=== PATIENT | male | born 2000 | race Caucasian/White ===

== ENCOUNTER 2018-02-01 17:21 | Emergency (ER) | payer OTHER ==
--- NOTE | 2018-02-01 17:32 | ER Report ---
History and Physical Time Seen By MD: 17:32 HPI/ROS CHIEF COMPLAINT: Suicidal ideation HISTORY OF PRESENT ILLNESS: 17-year-old male patient presents to emergency room with complaint of suicidal ideation. Patient states that he has had problems with depression in the past. He states that he is seen a counselor in [place], which is where he is from. He states he was seen by a psychiatrist today. He informed her that he was having suicidal ideation. That he had a plan that he was going to hang himself. She recommended he come in to the emergency room for evaluation for admission to [facility]. The patient states that he had to be convinced to come to the emergency room. He was escorted here by [facility] police. Patient states he's had significant amounts of stress with school work. REVIEW OF SYSTEMS: Respiratory: No cough, no dyspnea. Cardiovascular: No chest pain, no palpitations. Gastrointestinal: No vomiting, no abdominal pain. Musculoskeletal: No back pain. Allergies: Coded Allergies: Sulfa (Sulfonamide Antibiotics) (Verified Allergy, Unknown, 07/21/17) Home Meds No Active Prescriptions or Reported Meds Past Medical/Surgical History Patient has a past medical history of seizures, anxiety, depression. Reviewed Nurses Notes: Yes Constitutional Vital Sign - Last 24 Hours 02/01/18 17:29 Temp 98.1 Pulse 93 Resp 16 Pulse Ox 98 O2 Delivery Room Air Physical Exam General Appearance: The patient is alert, has no immediate need for airway protection and no current signs of toxicity. ENT: Tympanic membranes are pearly-martinez, auditory canals are patent, mucous membranes are moist. Respiratory: Chest is non tender, lungs are clear to auscultation. Cardiac: regular rate and rhythm Gastrointestinal: Abdomen is soft and non tender, no masses, bowel sounds normal. Musculoskeletal: Neck: Neck is supple and non tender. Extremities have full range of motion and are non tender. Skin: No rashes or lesions. Psych: Patient is able to maintain good eye contact, his rate of speech is appropriate. DIFFERENTIAL DIAGNOSIS: After history and physical exam differential diagnosis was considered for suicidal ideation, depression. Medical Decision Making Data Points Result Diagram: 02/01/18 1752 02/01/18 1752 Laboratory Hematology Test 02/01/18 17:27 02/01/18 17:52 Urine Color Yellow Urine Clarity Slightly-cloudy Urine pH 7.0 pH (4.8-9.5) Urine Specific [place] 1.016 Urine Protein Negative mg/dL (NEGATIVE) Urine Glucose (UA) Negative mg/dL (NEGATIVE) Urine Ketones Negative mg/dL (NEGATIVE) Urine Blood Negative (NEGATIVE) Urine Nitrite Negative (NEGATIVE) Urine Bilirubin Negative (NEGATIVE) Urine Urobilinogen Negative mg/dL (0.2-1.9) Urine Leukocyte Esterase Negative (NEGATIVE) Urine RBC None /HPF (0-2/HPF) Urine WBC <1 /HPF (0-5/HPF) Urine Squamous Epithelial Cells None /LPF (</=FEW) Urine Bacteria Negative /HPF (NONE-FEW) Urine Mucus Few /HPF (NONE-FEW) Urine Opiates Screen Negative Urine Barbiturates Screen Negative Ur Tricyclic Antidepressants Screen Negative Urine Phencyclidine Screen Negative Urine Amphetamines Screen Negative Urine Benzodiazepines Screen Negative Urine Cocaine Screen Negative Urine Cannabinoids Screen Negative Red Blood Count 6.31 M/uL (4.00-5.60) Mean Corpuscular Volume 80.0 fL (80.0-96.0) Mean Corpuscular Hemoglobin 28.0 pg (26.0-33.0) Mean Corpuscular Hemoglobin Concent 35.0 g/dL (32.0-36.0) Red Cell Distribution Width 13.2 % (11.5-14.5) Mean Platelet Volume 8.2 fL (7.2-11.1) Neutrophils (%) (Auto) 74.7 % (39.4-72.5) Lymphocytes (%) (Auto) 15.7 % (17.6-49.6) Monocytes (%) (Auto) 8.3 % (4.1-12.4) Eosinophils (%) (Auto) 0.6 % (0.4-6.7) Basophils (%) (Auto) 0.7 % (0.3-1.4) Nucleated RBC Relative Count (auto) 0.1 /100WBC Neutrophils # (Auto) 7.2 K/uL (2.0-7.4) Lymphocytes # (Auto) 1.5 K/uL (1.3-3.6) Monocytes # (Auto) 0.8 K/uL (0.3-1.0) Eosinophils # (Auto) 0.1 K/uL (0.0-0.5) Basophils # (Auto) 0.1 K/uL (0.0-0.1) Nucleated RBC Absolute Count (auto) 0.01 K/uL Sodium Level 141 mmol/L (137-145) Potassium Level 4.3 mmol/L (3.5-5.0) Chloride Level 102 mmol/L (98-107) Carbon Dioxide Level 26 mmol/L (22-30) Blood Urea Nitrogen 12 mg/dl (9-21) Creatinine 1.00 mg/dl (0.66-1.25) Glomerular Filtration Rate Calc > 60.0 Random Glucose 97 mg/dl (75-110) Calcium Level 9.6 mg/dl (8.4-10.2) Magnesium Level 1.8 mg/dl (1.7-2.2) Total Bilirubin 1.0 mg/dl (0.2-1.3) Aspartate Amino Transf (AST/SGOT) 23 U/L (0-35) Alanine Aminotransferase (ALT/SGPT) 27 U/L (0-56) Alkaline Phosphatase 77 U/L (0-126) Total Protein 8.2 gm/dl (6.3-8.2) Albumin 4.6 g/dl (3.5-5.0) Salicylates Level < 10 mg/L Salicylate Last Dose Date unk Acetaminophen Level < 10 ug/ml Serum Alcohol < 10 mg/dl Chemistry Test 02/01/18 17:27 02/01/18 17:52 Urine Color Yellow Urine Clarity Slightly-cloudy Urine pH 7.0 pH (4.8-9.5) Urine Specific [place] 1.016 Urine Protein Negative mg/dL (NEGATIVE) Urine Glucose (UA) Negative mg/dL (NEGATIVE) Urine Ketones Negative mg/dL (NEGATIVE) Urine Blood Negative (NEGATIVE) Urine Nitrite Negative (NEGATIVE) Urine Bilirubin Negative (NEGATIVE) Urine Urobilinogen Negative mg/dL (0.2-1.9) Urine Leukocyte Esterase Negative (NEGATIVE) Urine RBC None /HPF (0-2/HPF) Urine WBC <1 /HPF (0-5/HPF) Urine Squamous Epithelial Cells None /LPF (</=FEW) Urine Bacteria Negative /HPF (NONE-FEW) Urine Mucus Few /HPF (NONE-FEW) Urine Opiates Screen Negative Urine Barbiturates Screen Negative Ur Tricyclic Antidepressants Screen Negative Urine Phencyclidine Screen Negative Urine Amphetamines Screen Negative Urine Benzodiazepines Screen Negative Urine Cocaine Screen Negative Urine Cannabinoids Screen Negative White Blood Count 9.6 k/uL (4.5-11.0) Red Blood Count 6.31 M/uL (4.00-5.60) Hemoglobin 17.7 g/dL (14.0-18.0) Hematocrit 50.5 % (42.0-52.0) Mean Corpuscular Volume 80.0 fL (80.0-96.0) Mean Corpuscular Hemoglobin 28.0 pg (26.0-33.0) Mean Corpuscular Hemoglobin Concent 35.0 g/dL (32.0-36.0) Red Cell Distribution Width 13.2 % (11.5-14.5) Platelet Count 231 K/uL (150-450) Mean Platelet Volume 8.2 fL (7.2-11.1) Neutrophils (%) (Auto) 74.7 % (39.4-72.5) Lymphocytes (%) (Auto) 15.7 % (17.6-49.6) Monocytes (%) (Auto) 8.3 % (4.1-12.4) Eosinophils (%) (Auto) 0.6 % (0.4-6.7) Basophils (%) (Auto) 0.7 % (0.3-1.4) Nucleated RBC Relative Count (auto) 0.1 /100WBC Neutrophils # (Auto) 7.2 K/uL (2.0-7.4) Lymphocytes # (Auto) 1.5 K/uL (1.3-3.6) Monocytes # (Auto) 0.8 K/uL (0.3-1.0) Eosinophils # (Auto) 0.1 K/uL (0.0-0.5) Basophils # (Auto) 0.1 K/uL (0.0-0.1) Nucleated RBC Absolute Count (auto) 0.01 K/uL Glomerular Filtration Rate Calc > 60.0 Calcium Level 9.6 mg/dl (8.4-10.2) Magnesium Level 1.8 mg/dl (1.7-2.2) Total Bilirubin 1.0 mg/dl (0.2-1.3) Aspartate Amino Transf (AST/SGOT) 23 U/L (0-35) Alanine Aminotransferase (ALT/SGPT) 27 U/L (0-56) Alkaline Phosphatase 77 U/L (0-126) Total Protein 8.2 gm/dl (6.3-8.2) Albumin 4.6 g/dl (3.5-5.0) Salicylates Level < 10 mg/L Salicylate Last Dose Date unk Acetaminophen Level < 10 ug/ml Serum Alcohol < 10 mg/dl Toxicology Test 02/01/18 17:27 02/01/18 17:52 Urine Opiates Screen Negative Urine Barbiturates Screen Negative Ur Tricyclic Antidepressants Screen Negative Urine Phencyclidine Screen Negative Urine Amphetamines Screen Negative Urine Benzodiazepines Screen Negative Urine Cocaine Screen Negative Urine Cannabinoids Screen Negative Salicylates Level < 10 mg/L Salicylate Last Dose Date unk Acetaminophen Level < 10 ug/ml Serum Alcohol < 10 mg/dl Urinalysis Test 02/01/18 17:27 Urine Color Yellow Urine Clarity Slightly-cloudy Urine pH 7.0 pH (4.8-9.5) Urine Specific [place] 1.016 Urine Protein Negative mg/dL (NEGATIVE) Urine Glucose (UA) Negative mg/dL (NEGATIVE) Urine Ketones Negative mg/dL (NEGATIVE) Urine Blood Negative (NEGATIVE) Urine Nitrite Negative (NEGATIVE) Urine Bilirubin Negative (NEGATIVE) Urine Urobilinogen Negative mg/dL (0.2-1.9) Urine Leukocyte Esterase Negative (NEGATIVE) Urine RBC None /HPF (0-2/HPF) Urine WBC <1 /HPF (0-5/HPF) Urine Squamous Epithelial Cells None /LPF (</=FEW) Urine Bacteria Negative /HPF (NONE-FEW) Urine Mucus Few /HPF (NONE-FEW) ED Course/Re-evaluation ED Course Patient was admitted and examined, history and physical were obtained. Differential diagnoses were considered. Reexamination patient is calm appearing , is able to maintain appropriate rate of speech, maintained good eye contact. With patient having suicidal ideation with plan lab work for a behavioral [facility] admission were done. Labs were unremarkable, drug screen was negative. I discussed the results with the patient. I did discuss the case with Dr. Roy, psychiatrist, who agreed to accept the patient for admission. I discussed this with patient. He states he is not excited about going to [employer] [facility], however he understands. He did sign in voluntarily with the [employer] [facility]. Decision to Disposition Date: Feb 01, 2018 Decision to Disposition Time: 19:02 Depart Departure Latest Vital Signs Vital Signs Date Time Temp Pulse Resp B/P (MAP) Pulse Ox O2 Delivery O2 Flow Rate FiO2 02/01/18 17:29 98.1 93 16 98 Room Air Impression: Primary Impression: Suicidal ideation Additional Impression: Depression Condition: Condition Unchanged Disposition: XFER TO [facility] New Scripts No Active Prescriptions or Reported Meds Problem Qualifiers Additional Impression: Depression Depression Type: major depressive disorder Major depression recurrence: single episode Active/Remission status: currently active Major depression episode severity: moderate Qualified Codes: F32.1 - Major depressive disorder , single episode, moderate JAZZY BOLANOS THIRD LOADER Feb 01, 2018 17:32
[2018-02-01 17:59] LABS: PLATELET COUNT, AUTOMATED 231 K/uL (150-450)
[2018-02-01] MEDS ORDERED: ONDANSETRON 4 MG ODT TABDP SL ONE (18:00)
[2018-02-01 19:36] VITALS: BP 123/69
== END 2018-02-01 19:40 ==
LOC: ER 17:36
DX: T14.91XA Suicide attempt, initial encounter (principal); F32.1 Major depressive disorder, single episode, moderate
CPT/HCPCS: 36415; 80305; 80320; 80329; 81001; 82040; 82247; 82310; 82374; 82435; 82565; 82947; 83735; 84075; 84132; 84155; 84295; 84443; 84450; 84460; 84520; 85025; 99285

== ENCOUNTER 2018-02-01 19:18 | Inpatient (IN) | payer OTHER ==
[~2018-02-01] VITALS: Ht 180.3 cm; Wt 68.5 kg
[2018-02-01] MEDS ORDERED: MAG HYD/AL HYD/SIMETH 30ML UDC PO PRN (20:00)
[2018-02-01] MEDS ORDERED: ACETAMINOPHEN 325 MG TAB PO PRN (20:00)
[2018-02-01] MEDS ORDERED: LORazepam 1 MG TAB PO ONE ×2 (21:00→21:40)
[2018-02-02] MEDS: MULTIVITAMINS PO SCH (08:19)
[2018-02-02] MEDS ORDERED: DIAZEPAM 10 MG TAB PO ONE (11:45)
[2018-02-02] MEDS: CHOLECALCIFEROL 1000 UNIT TAB PO SCH (12:12)
[2018-02-02] MEDS: OMEGA-3 500 MG CAP PO SCH (12:12)
[2018-02-02 13:08] VITALS: BP 94/64
--- NOTE | 2018-02-02 16:33 | HISTORY AND PHYSICAL ---
DATE OF ADMISSION: February 01, 2018 This patient was seen at approximately 1100 hours on the morning of February 02, 2018 for this dictation. PRESENTING PROBLEM/CHIEF COMPLAINT "Thoughts of suicide." HISTORY OF PRESENT ILLNESS This is a cooperative and pleasant 17-year-old male who is somewhat resistant to necessary hospitalization resulting from suicidal ideation with plan. However, patient cooperative with therapist's request and was admitted on a voluntary basis through the [facility] Emergency Room. Patient was interviewed. Making good eye contact. Brief periods of tearfulness. Patient stating that he has had overall decompensating mood over the last year, culminating in plans of his own . Patient reported picking out a spot in [facility] and having a rope in order to hang himself. When asked about specific stressors , patient does state his school grades are low at times and he does not feel like he can concentrate, but other than that states that states that he does not feel like he should have any overwhelming identifiable stressors at this time. When asked about specific depressive symptoms, patient reports his appetite remains variable. He reports feeling guilty like he "doesn't do enough at school." Energy level has been down. His concentration has deteriorated and patient has lost interest in activities he used to enjoy. Patient reports he worries a lot at night and it is difficult to shut his brain off to go to sleep, and his mood has been down. Patient admits again fully to suicidal thoughts with plan. Patient indicates he has been a lifelong worrier and somewhat anxious overall. He has had out of the blue panic attack symptoms , probably meeting criteria for full panic attacks in the past, but they do not happen often. Patient denies any stefanie, psychosis, denies any symptoms of PTSD. Patient does report a previous fear of heights to some degree, but he reports he has conquered this. Denies any anorexia and bulimia. Patient overall likes organization at times, but he does not feel like he suffers from any deficits secondary to having to organize things. Patient does report that he noticed he likes to have stairs that are even so he can take two at a time. Patient denies any self-harm issues now or in the past. He reports somatization symptoms in the form of chest tightness when under stress. MENTAL HEALTH HISTORY Patient has never been an inpatient on a psychiatric [facility] before. Patient reports briefly first seeing a therapist as a senior in high school for some depressive symptoms at the time. Patient had made one visit with a university therapist, and when he reported thoughts of , therapist encouraged him strongly to come to the hospital, and accompanied him here it is believed. Patient has never been on any psychiatric medications and has no history of actual suicide attempt. FAMILY PSYCHIATRIC HISTORY Patient reports none that he is aware of in his family. No alcohol or drug abuse, and no suicides in the family. PAST MEDICAL HISTORY Patient is allergic to SULFA MEDICATIONS, but other than that reports good overall health and not currently being treated for any medical condition. SOCIAL HISTORY Patient was born in [place], raised in [place]. Parents were at the time of his . He has one older sibling, a sister, who is he reports doing well. Patient reports an overall good childhood, free of any abuse of any kind. He is a high school graduate, had a roughly 3.0 GPA. Patient's GPA slightly lower now in college at 2.4, where he has recently transferred from [employer] to work on an accounting degree. Patient has no experience, is not currently working. He maintains finances through scholarships and working in the summer. Patient is not currently in a relationship with a significant other. He does consider himself heterosexual. He lives with three other roommates in a house. Patient reports gets along well. LEGAL HISTORY Denies any legal history with the exception of MIP in the past one time, and patient states he drinks very rarely and it is not a problem other than alcohol use form time to time. SUBSTANCE ABUSE HISTORY He denies any substance abuse history. PHYSICAL EXAM GENERAL: Please see emergency room note. VITAL SIGNS: LABORATORY DATA MENTAL STATUS EXAMINATION GENERAL APPEARANCE, BEHAVIOR AND ATTITUDE: Notable for a very polite 17-year- old male, thin body habitus, anxious appearing with anxious speech patterns. Patient making good eye contact. No bizarre mannerisms or tics. Brief tearfulness at times. SPEECH: Anxious speech pattern, but within normal limits overall regarding rate , rhythm volume and tone. MOOD: Described as anxious and depressed. AFFECT: Minimally constricted and mood congruent overall. THOUGHT PROCESSES: Goal directed, logical. Patient becoming more comfortable with accepting care in a hospital setting, and allowing treatment team to contact parents. No obvious loose associations or flight of ideas could be detected. THOUGHT CONTENT: Free of auditory or visual hallucinations, ideas of reference , thought broadcastings, delusions, obsessions, compulsions. Patient admitting freely to suicidal thoughts with long drawn out plan of hanging himself. Denying homicidal ideation. SENSORIUM: Clear. COGNITION: Alert and oriented to person, place, time and situation. MEMORY: Immediate, recent and remote estimated intact. INTELLIGENCE: Average based on interview. INSIGHT AND JUDGMENT: Limited due to overall anxious and depressive type symptoms currently. However, patient cooperative now with care. ASSESSMENT This is a very polite, caring 17-year-old male who appears to be an accurate historian overall. Patient agrees to spend a few days on the unit and hopefully aim for efforts to recover from acute suicidal ideation. Patient agrees to start medication. Will focus on sleep. Will initiate Remeron at 15 mg at bedtime to help with anxiety and depression, and will consider a.m. med as well. Patient will participate in therapy as directed. DIAGNOSES PER DSM-V Generalized anxiety disorder. Persistent depressive disorder versus major depression. Social stressors ongoing. PLAN 1. Admit to the unit. 2. Necessary precautions to be implemented. 3. Patient will participate in individual and group therapy. 4. Medications to be prescribed and titrated as necessary. 5. Collateral information to be obtained. 6. Estimated length of stay three to five days. MTDD
[2018-02-02 18:20] VITALS: BP 104/68
[2018-02-02] MEDS: MIRTAZAPINE 15 MG TAB PO SCH (21:43)
[2018-02-03 05:40] VITALS: BP 108/55
[2018-02-03] MEDS: OMEGA-3 500 MG CAP PO SCH (08:30)
[2018-02-03] MEDS: MULTIVITAMINS PO SCH (08:30)
[2018-02-03] MEDS: CHOLECALCIFEROL 1000 UNIT TAB PO SCH (08:30)
--- NOTE | 2018-02-03 11:35 | BHS Progress Note ---
[facility] - Subjective Progress Notes Subjective "This is the best I've felt. My sleep has been hit or miss but I slept better last night." Rating depression "6" anxiety "3" 1-10 scale, 10 worst Describes school related stressors, had plans to hang self with location pre- set Denies urge for self harm, suicidal or homicidal ideation, last SI yesterday Suicidal Ideation: None Homicidal Ideation: None [facility] - Objective Physical Exam Vital Signs Vital Signs Date Time Temp Pulse Resp B/P (MAP) Pulse Ox O2 Delivery O2 Flow Rate FiO2 02/03/18 05:40 98.4 50 108/55 (72) 97 Room Air 02/02/18 18:20 16 Allergies Coded Allergies Sulfa (Sulfonamide Antibiotics) (Verified Allergy, Unknown, 07/21/17) Muscle Strength and Tone: WNL Gait and Station: Steady [facility] Medications Reviewed: Side Effects, Benefits of Medication Allergies Reviewed: Yes Mental Status Exam General Appearance: Casual, Well Groomed, Good Eye Contact, Cooperative, Polite , Good Interaction Speech: Clear, Spontaneous, Normal Rate, Normal Rhythm, Normal Volume, Normal Tone Mood: Dysthmic/Depressed (rates depression "6" 1-10 scale, 10 worst) Affect: No Full and Appropriate, Calm, Neutral, Anxious Thought Process: Organized, Logical, Goal Directed, No Loose Associations, No Flight of Ideas Thought Content: Suicidal Ideation (last SI yesterday), No Homicidal Ideation, No Delusions, No Auditory Halllucinations, No Visual Hallucinations, No Thought Broadcasting, No Ideas of Reference, No Obsessions Sensorium: Clear Cognition: Alert & Oriented-Person, Alert & Oriented-Place, Alert & Oriented- Time, [id number]-[id number] Memory: Immediate, Recent, Remote Intelligence: Average Insight Judgment: Poor (limited insight) Lab Vital Signs Date Time Temp Pulse Resp B/P (MAP) Pulse Ox O2 Delivery O2 Flow Rate FiO2 02/03/18 05:40 98.4 50 108/55 (72) 97 Room Air 02/02/18 18:20 16 Allergies Coded Allergies Sulfa (Sulfonamide Antibiotics) (Verified Allergy, Unknown, 07/21/17) [facility] Assessment and Plan [id number] Encounter Date: Feb 03, 2018 Ceea-ma-Ioss Encounter Time: 11:31 [facility] Plan: Admit to Unit, Necessary Precautions, Individual/Group Therapy, Admin /Titrate Meds, Educate Patient Multpiple Antipsychotics Used: No Problems: (1) Major depressive disorder Status: Chronic (2) Generalized anxiety disorder Status: Chronic Condition Continue Remeron Continue current therapy Maintain precautions ESTELA TATE NP Feb 03, 2018 11:35
[2018-02-03 18:20] VITALS: BP 108/62
[2018-02-03] MEDS: MIRTAZAPINE 15 MG TAB PO SCH (21:34)
[2018-02-04 06:16] VITALS: BP 98/54
[2018-02-04] MEDS: MULTIVITAMINS PO SCH (08:23)
[2018-02-04] MEDS: OMEGA-3 500 MG CAP PO SCH (08:23)
[2018-02-04] MEDS: CHOLECALCIFEROL 1000 UNIT TAB PO SCH (08:23)
--- NOTE | 2018-02-04 09:56 | BHS Progress Note ---
[facility] - Subjective Progress Notes Subjective "I'm doing a lot better." Rating depression and anxiety "2-3" 1-10 scale, 10 worst Sleeping well on Remeron, appetite increased Active with treatment, denies urge for harm to self or others. Suicidal Ideation: None Homicidal Ideation: None [facility] - Objective Physical Exam Vital Signs Vital Signs Date Time Temp Pulse Resp B/P (MAP) Pulse Ox O2 Delivery O2 Flow Rate FiO2 02/04/18 06:16 98.4 63 98/54 (69) 95 Room Air 02/02/18 18:20 16 Allergies Coded Allergies Sulfa (Sulfonamide Antibiotics) (Verified Allergy, Unknown, 07/21/17) Muscle Strength and Tone: WNL Gait and Station: Steady [facility] Medications Reviewed: Side Effects, Benefits of Medication Allergies Reviewed: Yes Mental Status Exam General Appearance: Casual, Well Groomed, Good Eye Contact, Cooperative, Polite , Good Interaction Speech: Clear, Spontaneous, Normal Rate, Normal Rhythm, Normal Volume, Normal Tone Mood: Dysthmic/Depressed (rates depression "2-3" 1-10 scale, 10 worst) Affect: Full and Appropriate, Calm, Neutral, Anxious Thought Process: Organized, Logical, Goal Directed, No Loose Associations, No Flight of Ideas Thought Content: Suicidal Ideation (last SI upon admit), No Homicidal Ideation , No Delusions, No Auditory Halllucinations, No Visual Hallucinations, No Thought Broadcasting, No Ideas of Reference, No Obsessions Sensorium: Clear Cognition: Alert & Oriented-Person, Alert & Oriented-Place, Alert & Oriented- Time, [id number]-[id number] Memory: Immediate, Recent, Remote Intelligence: Average Insight Judgment: Poor (limited insight) Lab Vital Signs Date Time Temp Pulse Resp B/P (MAP) Pulse Ox O2 Delivery O2 Flow Rate FiO2 02/04/18 06:16 98.4 63 98/54 (69) 95 Room Air 02/02/18 18:20 16 Allergies Coded Allergies Sulfa (Sulfonamide Antibiotics) (Verified Allergy, Unknown, 07/21/17) [facility] Assessment and Plan [id number] Encounter Date: Feb 04, 2018 Htkk-hv-Aluz Encounter Time: 11:09 [facility] Plan: Admit to Unit, Necessary Precautions, Individual/Group Therapy, Admin /Titrate Meds, Educate Patient Multpiple Antipsychotics Used: No Problems: (1) Major depressive disorder Status: Chronic (2) Generalized anxiety disorder Status: Chronic Condition Continue Remeron Continue current treatment Parents to join treatment team tomorrow 02/05/18 Maintain precautions ESTELA TATE NP Feb 04, 2018 09:56
[2018-02-04 13:30] VITALS: BP 104/62
[2018-02-04 20:54] VITALS: BP 141/77
[2018-02-04] MEDS: MIRTAZAPINE 15 MG TAB PO SCH (21:13)
[2018-02-05 06:19] VITALS: BP 109/57
[2018-02-05] MEDS: MULTIVITAMINS PO SCH (07:33)
[2018-02-05] MEDS: CHOLECALCIFEROL 1000 UNIT TAB PO SCH (07:33)
[2018-02-05] MEDS: OMEGA-3 500 MG CAP PO SCH (07:33)
[2018-02-05] MEDS ORDERED: OMEG1CAP39 PO (09:40)
[2018-02-05] MEDS ORDERED: MULT-859 PO (09:41)
[2018-02-05] MEDS ORDERED: MIRT-1 PO (09:42)
--- NOTE | 2018-02-07 16:57 | DISCHARGE SUMMARY ---
Patient was seen at approximately 0900 hours on the morning of February 05, 2018 for this discharge summary. FINAL DIAGNOSES PER DSM-V Generalized anxiety disorder. Persistent depressive disorder versus major depression. Social stressors. Supportive relationship with parents. REASON FOR ADMISSION This is a very polite, cooperative 17-year-old male who was admitted on a voluntary basis after experiencing ongoing depressive symptoms, culminating in suicidal ideation and development of plan. Please see H and P for full details. Patient was reluctant at first to get parents involved as he did not want to worry them. Patient, however, cooperative with encouragement to do so. Parents met with patient. Patient was started on Remeron for poor sleep and symptoms of anxiety and depression and somatic complaints. Patient responded well, took an active role in treatment with therapy as well, and continued to improve. Suicidal ideation went into remission. PHYSICAL EXAMINATION GENERAL: This is a 17-year-old thin male in no acute medical distress, depressed appearing in the emergency room. VITAL SIGNS: At the time of admission, temperature 98.1, pulse 93, respiratory rate 16, blood pressure 123/69, pulse oximetry 98 on room air. At the time of discharge, vital signs indicated temperature 98.9, pulse 57, respiratory rate 15 , blood pressure 109/57 and pulse oximetry 94 on room air. LABORATORY DATA Vitamin D 25-hydroxy was noted to be 40. Free T4 1.17, free T3 3.6. At the time of admission TSH 1.91, in normal range. CBC largely unremarkable, RBCs slightly elevated at 6.31. CMP unremarkable. Urinalysis unremarkable. Toxicology screen negative for substances of abuse, and a nondetectable serum alcohol level. MENTAL STATUS EXAMINATION AT THE TIME OF DISCHARGE GENERAL APPEARANCE, BEHAVIOR AND ATTITUDE: This is a polite, cooperative 17- year-old male, making good eye contact. No periods of tearfulness. Smiling, interacting well with his parents, this provider and treatment team staff. No psychomotor agitation or retardation. No bizarre mannerisms or tics. SPEECH: Within normal limits, regular rate, rhythm volume and tone. MOOD: Described as good. AFFECT: Full and bright. Mood congruent overall. THOUGHT PROCESSES: Logical, goal directed. No loose associations or flight of ideas. THOUGHT CONTENT: Free of auditory or visual hallucinations, ideas of reference , thought broadcastings, delusions, obsessions, compulsions. Patient adamantly denying suicidal or homicidal ideation at the time of discharge. SENSORIUM: Clear. COGNITION: Alert and oriented to person, place, time and situation. MEMORY: Immediate, recent and remote estimated intact. INTELLIGENCE: Average based on interview. INSIGHT AND JUDGMENT: Considered grossly intact and appropriate for ongoing outpatient management. RESULTS OF TESTING IMAGING: None. LABORATORY DATA: See above. CONSULTATIONS: None. TREATMENT Patient received medications, participated in individual and group therapy. HOSPITAL COURSE Patient overall took a very active role in his treatment from the very start. Patient seemingly responding well to Remeron with its sedating effects, anxiety lessening. Patient's appetite noted to almost immediately be improved in this thin male. Patient continued to progress and suicidal ideations went into remission. CONDITION OF PATIENT ON DISCHARGE Stable. Considered minimal risk to himself or others and appropriate for outpatient care. DISPOSITION Patient discharged to home. He would follow up with outpatient medication management and therapy. Given the crisis line should symptoms return. Patient would remain on Remeron 15 mg p.o. at bedtime, as well as 1000 mg [place]-3 fish oil over the counter daily, and vitamin D 1000 international units daily, along with multivitamin with minerals. Risks, benefits and alternatives of the above discharge plan were discussed. Informed consent was given to proceed with above discharge plan by this competent patient and patient's parents present at the time of discharge. CYNTHIA
== END 2018-02-05 10:30 | disposition home or self-care (01) | DRG 880 ==
LOC: BHS 19:18
PROVIDERS: ADMIT Psychiatry & Neurology Psychiatry; ATTEND Psychiatry & Neurology Psychiatry
DX: F41.1 Generalized anxiety disorder (principal); R45.851 Suicidal ideations; F34.1 Dysthymic disorder; Z73.3 Stress, not elsewhere classified
CPT/HCPCS: 82306; 84439; 84481